=== PATIENT | female | born 1990 | race Caucasian/White ===

== ENCOUNTER → 2017-08-21 | Outpatient (CLI) | payer BC ==
[~2017-08-21] MED LIST: BIRTH CONTROL; NITR-65 PO
--- NOTE | 2017-08-21 12:21 | Diagnostic Imaging Report ---
PROCEDURE: US OB SINGLE FETUS <14 WKS. TECHNIQUE: Multiple real-time grayscale images were obtained over the gravid uterus in various projections. INDICATION: Uncertain dates COMPARISON: There are no prior studies available for comparison. FINDINGS: There is a gestational sac within the uterus containing a single live fetus. heart motion was noted and a rate of 169 bpm was recorded. The crown-rump length suggests the estimated gestational age is 8 weeks 5 days plus or minus one week. There were no obvious abnormalities identified. The amniotic fluid volume is within normal limits. At this time, it is not certain where the placenta will develop. There is no pelvic mass or free fluid collection noted. The ovaries were not visualized. IMPRESSION: 1. There is a single live intrauterine of approximately 8 weeks 5 days gestation, plus or minus one week. The EDC is 03/28/2018. 2. There were no obvious abnormalities identified. If a more sensitive evaluation of anatomy is desired, then a followup exam in 10-12 weeks would be recommended. Dictated by: Dictated on workstation # [id number]
== END ==
LOC: RAD 10:03
PROVIDERS: ATTEND Family Medicine
DX: Z34.81 Encounter for supervision of other normal pregnancy, first trimester (principal); Z3A.08 8 weeks gestation of pregnancy
CPT/HCPCS: 76801

== ENCOUNTER 2017-09-07 20:00 | Observation (INO) | payer BC ==
[~2017-09-07] VITALS: Ht 160 cm; Wt 84.1 kg
--- OUTSIDE RECORDS SUMMARY | 2017-09-07 20:06 | XMS REPORT | Continuity of Care Document ---
Author Author [facility] Organization [facility] Address Unknown Phone Unavailable Allergies Active Description Code Type Severity Reaction Onset Reported/Identified Relationship to Patient Clinical Status Yes No Known Drug Allergies [id number] Drug Allergy Unknown N/A 11/25/2013 Medications There is no data. Problems Date Dx Coded Attending Type Code Diagnosis Diagnosed By 11/25/2013 YEIMI CASTILLO MD Ot 599.0 URIN TRACT INFECTION NOS 11/25/2013 YEIMI CASTILLO MD Ot 789.09 ABDOMINAL PAIN, OTHER SPECIFIED SITE 08/22/2017 RIKA ROBERTO MD Ot Z34.81 ENCOUNTER FOR SUPRVSN OF NORMAL PREGNANC 08/22/2017 RIKA ROBERTO MD Ot Z3A.08 8 WEEKS GESTATION OF 09/03/2017 RIKA ROBERTO MD Ot Z34.81 ENCOUNTER FOR SUPRVSN OF NORMAL PREGNANC 09/03/2017 RIKA ROBERTO MD, Ot Z3A.08 8 WEEKS GESTATION OF Procedures There is no data. Results There is no data. Encounters ACCT No. Visit Date/Time Discharge Status Pt. Type Provider Facility Loc./Unit Complaint [id number] 08/21/2017 10:03:00 08/21/2017 23:59:59 CLS Outpatient RIKA ROBERTO MD [facility] RAD DATING [id number] 11/25/2013 01:45:00 11/25/2013 02:15:00 DIS Emergency YEIMI CASTILLO MD [facility] ER BACK PAIN
[2017-09-07] MEDS ORDERED: LACTATED RINGERS 1,000 ML IV ONE ×2 (20:59→22:06)
[2017-09-07 21:12] LABS: BASOPHILS % (AUTO) 0 % (0-10); EOSINOPHILS % (AUTO) 0 % (0-10); HEMATOCRIT 37 % (35-52); HEMOGLOBIN 12.8 G/DL (11.5-16.0); LYMPHOCYTES % (AUTO) 10 % (12-44); MEAN CORPUSCULAR HEMOGLOBIN 29 PG (25-34); MEAN CORPUSCULAR HGB CONC 35 G/DL (32-36); MEAN CORPUSCULAR VOLUME 83 FL (80-99); MEAN PLATELET VOLUME 9.9 FL (7.4-10.4); MONOCYTES # (AUTO) 0.2 X 10^3 (0.0-1.0); MONOCYTES % (AUTO) 2 % (0-12); NEUTROPHILS # (AUTO) 9.2 X 10^3 (1.8-7.8); NEUTROPHILS % (AUTO) 88 % (42-75); PLATELET COUNT 295 10^3/uL (130-400); RED BLOOD COUNT 4.45 10^6/uL (4.35-5.85); RED CELL DISTRIBUTION WIDTH 12.7 % (10.0-14.5); WHITE BLOOD COUNT 10.4 10^3/uL (4.3-11.0)
--- NOTE | 2017-09-07 21:23 | ED Abdominal Pain ---
General Chief Complaint: Abdominal/GI Problems Stated Complaint: 11 WEEKS , ABD PAIN Nursing Triage Note: PT C/O LEFT SIDED ABD PAIN ONSET TODAY, PT IS 11 WEEKS . PT ALSO REPORTS NAUSEA AND VOMITING Sepsis Screen: No Definite Risk Source of Information: Patient Exam Limitations: No Limitations History of Present Illness Date Seen by Provider: Sep 07, 2017 Time Seen by Provider: 21:00 Initial Comments PT STATES SHE IS 11 WEEKS --LMP 06/23/17 PT BEGAN HAVING SEVERE LLQ AND LEFT FLANK PAIN/CRAMPING AROUND 1600 TODAY AND HAS BEEN CONSTANT PAIN NOTHING WORSENS OR IMPROVES PAIN TOOK 2 TYLENOL AROUND 1800 WITHOUT RELIEF HAS HAD NAUSEA AND VOMITED X 2 TODAY. HAS NOT HAD ANY INTAKE TODAY NO DIARRHEA--HAD NORMAL BM YESTERDAY NO FEVER HAS HAD LOWER ABDOMINAL PRESSURE X 1 WEEK HAS BEEN HAVING DIFFICULTY URINATING ALL WEEK--URGENCY, FREQUENCY, SMALL AMOUNTS --SEEN BY DR. ROBERTO ON FRIDAY AND DX WITH UTI AND STARTED ON MACROBID SEEN AGAIN ON Friday09/05/17 FOR SAME SYMPTOMS, URINE WAS CLEAR AT THAT TIME. NO CHANGE IN MEDICATION HAD ROUTINE OB ULTRASOUND 3 WEEKS AGO AND WAS NOT HAVING PROBLEMS OF ANY KIND AT THAT TIME, AND HAS NOT HAD ANY DURING THIS . PT IS AB0 NO PRIOR ABDOMINAL PROBLEMS PCP AND OB: DR ROBERTO Allergies and Home Medications Allergies Coded Allergies: No Known Drug Allergies (Unverified , 11/25/13) Home Medications Nitrofurantoin/Nitrofuran Mac 100 Mg Capsule, 1 EACH PO BID, #10 FOR INFECTION Prescribed by: YEIMI CASTILLO on 11/25/13 0208 [ Control] , (Reported) Review of Systems Constitutional: no symptoms reported, No chills, No diaphoresis, No fever EENTM: No Symptoms Reported Respiratory: No Symptoms Reported Cardiovascular: No Symptoms Reported Gastrointestinal: See HPI, Abdominal Pain, Denies Constipated, Denies Diarrhea , Nausea, Poor Appetite, Poor Fluid Intake, Vomiting Genitourinary: See HPI, Frequency, Flank Pain, Urgency Musculoskeletal: see HPI, back pain Skin: no symptoms reported Psychiatric/Neurological: No Symptoms Reported Endocrine: No Symptoms Reported Hematologic/Lymphatic: No Symptoms Reported Past Rctwpnl-Fkpyia-Ugpola Hx Patient Social History Alcohol Use: Denies Use Recreational Drug Use: No Smoking Status: Never a Smoker Recent Foreign Travel: No Contact w/Someone Who Travel: No Recent Infectious Disease Expo: No Physical Abuse: No Sexual Abuse: No Surgeries History of Surgeries: Yes (WISDOM TEETH REMOVED) Respiratory History of Respiratory Disorde: No Cardiovascular History of Cardiac Disorders: No Neurological History of Neurological Disord: No Reproductive System : Yes Last Menstrual Period: Jun 23, 2017 Hx : 1 Hx Para: 0 Hx Total # of Abortions (Spona: 0 Hx Reproductive Disorders: No Sexually Transmitted Disease: No Genitourinary History of Genitourinary Disor: No Gastrointestinal History of Gastrointestinal Di: No Musculoskeletal History of Musculoskeletal Dis: No Endocrine History of Endocrine Disorders: No HEENT History of HEENT Disorders: No Cancer History of Cancer: No Psychosocial History of Psychiatric Problem: No Suicide Risk Score: 0 Integumentary History of Skin or Integumenta: No Blood Transfusions History of Blood Disorders: No Physical Exam Vital Signs VS - Last 72 Hours, by Label 09/07/17 20:57 Temp 98.4 Pulse 66 Resp 20 B/P (MAP) 111/74 (86) Capillary Refill : Less Than 3 Seconds General Appearance: WD/WN, no apparent distress HEENT: PERRL/EOMI Neck: normal inspection Respiratory: normal breath sounds, no respiratory distress, no accessory muscle use Cardiovascular: regular rate, rhythm, no murmur Gastrointestinal: normal bowel sounds, soft, no organomegaly, no pulsatile mass , No distended, No guarding, No rebound, tenderness (LLQ AND LEFT FLANK) Extremities: normal inspection, no pedal edema Back: CVA tenderness (L) Neurologic/Psychiatric: 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, no motor/sensory deficits, alert, normal mood/affect, oriented x 3 Skin: normal color, warm/dry, No rash Progress/Results/Core Measures Results/Orders Lab Results Laboratory Tests Test 09/07/17 21:05 09/07/17 22:19 Range/Units White Blood Count 10.4 4.3-11.0 10^3/uL Red Blood Count 4.45 4.35-5.85 10^6/uL Hemoglobin 12.8 11.5-16.0 G/DL Hematocrit 37 35-52 % Mean Corpuscular Volume 83 80-99 FL Mean Corpuscular Hemoglobin 29 25-34 PG Mean Corpuscular Hemoglobin Concent 35 32-36 G/DL Red Cell Distribution Width 12.7 10.0-14.5 % Platelet Count 295 130-400 10^3/uL Mean Platelet Volume 9.9 7.4-10.4 FL Neutrophils (%) (Auto) 88 H 42-75 % Lymphocytes (%) (Auto) 10 L 12-44 % Monocytes (%) (Auto) 2 0-12 % Eosinophils (%) (Auto) 0 0-10 % Basophils (%) (Auto) 0 0-10 % Neutrophils # (Auto) 9.2 H 1.8-7.8 X 10^3 Lymphocytes # (Auto) 1.0 1.0-4.0 X 10^3 Monocytes # (Auto) 0.2 0.0-1.0 X 10^3 Eosinophils # (Auto) 0.0 0.0-0.3 10^3/uL Basophils # (Auto) 0.0 0.0-0.1 10^3/uL Neutrophils % (Manual) 84 % Lymphocytes % (Manual) 11 % Monocytes % (Manual) 0 % Eosinophils % (Manual) 0 % Basophils % (Manual) 0 % Band Neutrophils 4 % Reactive Lymphocytes 1 % Blood Morphology Comment NORMAL Sodium Level 135 135-145 MMOL/L Potassium Level 4.0 3.6-5.0 MMOL/L Chloride Level 104 98-107 MMOL/L Carbon Dioxide Level 18 L 21-32 MMOL/L Anion Gap 13 5-14 MMOL/L Blood Urea Nitrogen 7 7-18 MG/DL Creatinine 0.74 0.60-1.30 MG/DL Estimat Glomerular Filtration Rate > 60 BUN/Creatinine Ratio 9 Glucose Level 121 H 70-105 MG/DL Calcium Level 9.0 8.5-10.1 MG/DL Total Bilirubin 0.3 0.1-1.0 MG/DL Aspartate Amino Transf (AST/SGOT) 31 5-34 U/L Alanine Aminotransferase (ALT/SGPT) 22 0-55 U/L Alkaline Phosphatase 69 40-136 U/L Total Protein 7.1 6.4-8.2 GM/DL Albumin 3.7 3.2-4.5 GM/DL Amylase Level 31 25-125 U/L Lipase 17 8-78 U/L Human Chorionic Gonadotropin, Quant 43166 H <5 MIU/ML Urine Color YELLOW Urine Clarity CLEAR Urine pH 6 5-9 Urine Specific [place] 1.025 H 1.016-1.022 Urine Protein NEGATIVE NEGATIVE Urine Glucose (UA) NEGATIVE NEGATIVE Urine Ketones 4+ H NEGATIVE Urine Nitrite NEGATIVE NEGATIVE Urine Bilirubin NEGATIVE NEGATIVE Urine Urobilinogen NORMAL NORMAL MG/DL Urine Leukocyte Esterase NEGATIVE NEGATIVE Urine RBC (Auto) 1+ H NEGATIVE Urine RBC 0-2 /HPF Urine WBC 0-2 /HPF Urine Squamous Epithelial Cells 0-2 /HPF Urine Crystals NONE /LPF Urine Bacteria FEW H /HPF Urine Casts NONE /LPF Urine Mucus NEGATIVE /LPF Urine Culture Indicated NO My Orders Orders - JESSICA POPE DO Saline Lock/Iv-Start (09/07/17 20:59) Amylase (09/07/17 20:59) Cbc With Automated Diff (09/07/17 20:59) Comprehensive Metabolic Panel (09/07/17 20:59) Hcg,Quantitative (09/07/17 20:59) Lipase (09/07/17 20:59) Ua Culture If Indicated (09/07/17 20:59) Abo Rh Type (09/07/17 20:59) Us Ob Single Fetus<14 [id number] (09/07/17 20:59) Saline Lock/Iv-Start (09/07/17 20:59) Lactated Ringers (Lr 1000 Ml Iv Solution (09/07/17 20:59) Manual Differential (09/07/17 21:05) Us Renal Limited [id number] (09/07/17 21:38) Morphine Injection (Morphine Injection (09/07/17 22:06) Lactated Ringers (Lr 1000 Ml Iv Solution (09/07/17 22:06) Promethazine Injection (Phenergan Injec (09/07/17 22:30) Diphenhydramine Injection (Benadryl Inje (09/07/17 22:30) Medications Given in ED Current Medications Medications Dose Ordered Sig/Андрей Route Start Time Stop Time Status Last Admin Dose Admin Lactated Ringer's 1,000 ml @ 0 mls/hr Q0M ONCE IV 09/07/17 20:59 09/07/17 21:01 DC 09/07/17 21:11 1,000 MLS/HR Lactated Ringer's 1,000 ml @ 0 mls/hr Q0M ONCE IV 09/07/17 22:06 09/07/17 22:19 DC 09/07/17 23:15 1,000 MLS/HR Vital Signs/I&O Vital Sign - Last 12Hours 09/07/17 20:57 Temp 98.4 Pulse 66 Resp 20 B/P (MAP) 111/74 (86) Intake and Output 09/08/17 00:00 Intake Total 1000 ml Balance 1000 ml Blood Pressure Mean: 86 Progress Note : Progress Note PAIN PARTIALLY EASED WITH PAIN MEDICATIONS UNEVENTFUL ER STAY Diagnostic Imaging Comments ULTRASOUNDS--OB NORMAL IUP 11 WEEKS 2 DAYS.FHR 147--PER [facility] VIA FAX @ 7777 ULTRASOUND LEFT KIDNEY--MILD LEFT HYDRONEPHROSIS--PER [facility] VIA FAX @ 5692 Reviewed: Reviewed by Me Departure Communication (Admissions) Time/Spoke to Admitting Phy: 23:[address] CRABTREE. ACCEPTS PT FOR ADMIT. SHE ADVISES ONE VIEW KUB XRAY STONE IS NOT VISIBLE ON ULTRASOUND Impression Impression: Primary Impression: SUSPECTED LEFT URETERAL STONE Additional Impressions: Hydronephrosis of left kidney 11 weeks gestation of Disposition: ADMITTED INPATIENT Condition: Stable Admissions Decision to Admit Reason: Admit from ER (General) Decision to Admit/Date: Sep 07, 2017 Time/Decision to Admit Time: 23:15 Departure-Patient Inst. Referrals: RIKA ROBERTO MD (PCP/Family) Primary Care Physician JESSICA POPE DO Sep 07, 2017 21:23
[2017-09-07 21:33] LABS: ALANINE AMINOTRANSFERASE 22 U/L (0-55); ALBUMIN 3.7 GM/DL (3.2-4.5); ALKALINE PHOSPHATASE 69 U/L (40-136); AMYLASE 31 U/L (25-125); BILIRUBIN,TOTAL 0.3 MG/DL (0.1-1.0); BUN/CREATININE RATIO 9; CARBON DIOXIDE 18 MMOL/L (21-32); CHLORIDE 104 MMOL/L (98-107); CREATININE SERUM 0.74 MG/DL (0.60-1.30); GFR ESTIMATED > 60; GLUCOSE 121 MG/DL (70-105); LIPASE 17 U/L (8-78); SODIUM 135 MMOL/L (135-145); TOTAL PROTEIN 7.1 GM/DL (6.4-8.2)
[2017-09-07 21:38] LABS: BAND NEUTROPHILS 4 %; BASOPHILS % (MANUAL) 0 %; EOSINOPHILS % (MANUAL) 0 %; LYMPHOCYTES % (MANUAL) 11 %; MONOCYTES % (MANUAL) 0 %; NEUTROPHILS % (MANUAL) 84 %; RBC MORPH NORMAL; REACTIVE LYMPHOCYTES 1 %
[2017-09-07] MEDS ORDERED: morphine INJ 10 MG/ML 1ML (SYR OR VIAL) IVP STA ×2 (22:06→23:14)
[2017-09-07] MEDS ORDERED: diphenhydrAMINE 50 MG/ML INJ (BENADRYL) IVP ONE (22:30)
[2017-09-07] MEDS ORDERED: PROMETHAZINE INJ 25 MG/ML (PHENERGAN) AMP IVP ONE (22:30)
[2017-09-07 22:56] LABS: CLARITY,URINE CLEAR; COLOR,URINE YELLOW
[2017-09-07 22:57] LABS: BACTERIA,URINE FEW /HPF; BILIRUBIN,URINE NEGATIVE (NEGATIVE); GLUCOSE, URINE (UA) NEGATIVE (NEGATIVE); KETONES,URINE 4+ (NEGATIVE); LEUKOCYTE ESTERASE ,URINE NEGATIVE (NEGATIVE); NITRITE,URINE NEGATIVE (NEGATIVE); PH,URINE 6 (5-9); PROTEIN,URINE NEGATIVE (NEGATIVE); RBC,URINE 0-2 /HPF; UROBILINOGEN,URINE NORMAL (NORMAL); WBC,URINE 0-2 /HPF
[2017-09-07 22:58] LABS: SQUAMOUS EPITHELIAL CELL,UR 0-2 /HPF
--- OUTSIDE RECORDS SUMMARY | 2017-09-07 23:36 | XMS REPORT | Continuity of Care Document ---
Author Author [facility] Organization [facility] Address Unknown Phone Unavailable Allergies Active Description Code Type Severity Reaction Onset Reported/Identified Relationship to Patient Clinical Status Yes No Known Drug Allergies [id number] Drug Allergy Unknown N/A 11/25/2013 Medications There is no data. Problems Date Dx Coded Attending Type Code Diagnosis Diagnosed By 11/25/2013 YEIMI CASTILLO MD Ot 599.0 URIN TRACT INFECTION NOS 11/25/2013 YEIMI CASTILLO MD Ot 789.09 ABDOMINAL PAIN, OTHER SPECIFIED SITE 08/22/2017 RIKA ROBERTO MD, Ot Z34.81 ENCOUNTER FOR SUPRVSN OF NORMAL PREGNANC 08/22/2017 RIKA ROBERTO MD, Ot Z3A.08 8 WEEKS GESTATION OF 09/03/2017 RIKA ROBERTO MD, Ot Z34.81 ENCOUNTER FOR SUPRVSN OF NORMAL PREGNANC 09/03/2017 RIKA ROBERTO MD, Ot Z3A.08 8 WEEKS GESTATION OF Procedures There is no data. Results Test Result Range Complete blood count (CBC) with automated white blood cell (WBC) differential - 09/07/17 21:05 Blood leukocytes automated count (number/volume) 10.4 10*3/uL 4.3-11.0 Blood erythrocytes automated count (number/volume) 4.45 10*6/uL 4.35-5.85 Venous blood hemoglobin measurement (mass/volume) 12.8 g/dL 11.5-16.0 Blood hematocrit (volume fraction) 37 % 35-52 Automated erythrocyte mean corpuscular volume 83 [foz_us] 80-99 Automated erythrocyte mean corpuscular hemoglobin (mass per erythrocyte) 29 pg 25-34 Automated erythrocyte mean corpuscular hemoglobin concentration measurement ( mass/volume) 35 g/dL 32-36 Automated erythrocyte distribution width ratio 12.7 % 10.0-14.5 Automated blood platelet count (count/volume) 295 10*3/uL 130-400 Automated blood platelet mean volume measurement 9.9 [foz_us] 7.4-10.4 Automated blood neutrophils/100 leukocytes 88 % 42-75 Automated blood lymphocytes/100 leukocytes 10 % 12-44 Blood monocytes/100 leukocytes 2 % 0-12 Automated blood eosinophils/100 leukocytes 0 % 0-10 Automated blood basophils/100 leukocytes 0 % 0-10 Blood neutrophils automated count (number/volume) 9.2 10*3 1.8-7.8 Blood lymphocytes automated count (number/volume) 1.0 10*3 1.0-4.0 Blood monocytes automated count (number/volume) 0.2 10*3 0.0-1.0 Automated eosinophil count 0.0 10*3/uL 0.0-0.3 Automated blood basophil count (count/volume) 0.0 10*3/uL 0.0-0.1 Comprehensive metabolic panel - 09/07/17 21:05 Serum or plasma sodium measurement (moles/volume) 135 mmol/L 135-145 Serum or plasma potassium measurement (moles/volume) 4.0 mmol/L 3.6-5.0 Serum or plasma chloride measurement (moles/volume) 104 mmol/L 98-107 Carbon dioxide 18 mmol/L 21-32 Serum or plasma anion gap determination (moles/volume) 13 mmol/L 5-14 Serum or plasma urea nitrogen measurement (mass/volume) 7 mg/dL 7-18 Serum or plasma creatinine measurement (mass/volume) 0.74 mg/dL 0.60-1.30 Serum or plasma urea nitrogen/creatinine mass ratio 9 NRG Serum or plasma creatinine measurement with calculation of estimated glomerular filtration rate > NRG Serum or plasma glucose measurement (mass/volume) 121 mg/dL 70-105 Serum or plasma calcium measurement (mass/volume) 9.0 mg/dL 8.5-10.1 Serum or plasma total bilirubin measurement (mass/volume) 0.3 mg/dL 0.1-1.0 Serum or plasma alkaline phosphatase measurement (enzymatic activity/volume) 69 U/L 40-136 Serum or plasma aspartate aminotransferase measurement (enzymatic activity/ volume) 31 U/L 5-34 Serum or plasma alanine aminotransferase measurement (enzymatic activity/volume ) 22 U/L 0-55 Serum or plasma protein measurement (mass/volume) 7.1 g/dL 6.4-8.2 Serum or plasma albumin measurement (mass/volume) 3.7 g/dL 3.2-4.5 Serum or plasma amylase measurement (enzymatic activity/volume) - 09/07/17 21: 05 Serum or plasma amylase measurement (enzymatic activity/volume) 31 U /L 25-125 Lipase - 09/07/17 21:05 Lipase 17 U/L 8-78 Blood manual differential performed detection - 09/07/17 21:05 Blood monocytes/100 leukocytes 0 % NRG Manual blood segmented neutrophils/100 leukocytes 84 % NRG Blood band neutrophils/100 leukocytes 4 % NRG Manual blood lymphocytes/100 leukocytes 11 % NRG Manual eosinophils/100 leukocytes in nose 0 % NRG Manual blood basophils/100 leukocytes 0 % NRG Blood lymphocytes variant/100 leukocytes 1 % NRG Blood erythrocyte morphology finding identification NORMAL NRG Serum or plasma choriogonadotropin measurement (units/volume) - 09/07/17 21:05 Serum or plasma choriogonadotropin measurement (units/volume) 20732 m[iU]/mL <5 ABO+Rh group - 09/07/17 21:10 ABO+Rh group OP NRG Complete urinalysis with reflex to culture - 09/07/17 22:19 Urine color determination YELLOW NRG Urine clarity determination CLEAR NRG Urine pH measurement by test strip 6 5-9 Specific gravity of urine by test strip 1.025 1.016- 1.022 Urine protein assay by test strip, semi-quantitative NEGATIVE NEGATIVE Urine glucose detection by automated test strip NEGATIVE NEGATIVE Erythrocytes detection in urine sediment by light microscopy 1+ NEGATIVE Urine ketones detection by automated test strip 4+ NEGATIVE Urine nitrite detection by test strip NEGATIVE NEGATIVE Urine total bilirubin detection by test strip NEGATIVE NEGATIVE Urine urobilinogen measurement by automated test strip (mass/volume) NORMAL NORMAL Urine leukocyte esterase detection by dipstick NEGATIVE NEGATIVE Automated urine sediment erythrocyte count by microscopy (number/high power field) [HPF] NRG Automated urine sediment leukocyte count by microscopy (number/high power field ) [HPF] NRG Bacteria detection in urine sediment by light microscopy FEW NRG Squamous epithelial cells detection in urine sediment by light microscopy 0-2 NRG Crystals detection in urine sediment by light microscopy NONE NRG Casts detection in urine sediment by light microscopy NONE NRG Mucus detection in urine sediment by light microscopy NEGATIVE NRG Complete urinalysis with reflex to culture NO NRG Encounters ACCT No. Visit Date/Time Discharge Status Pt. Type Provider Facility Loc./Unit Complaint [id number] 08/21/2017 10:03:00 08/21/2017 23:59:59 CLS Outpatient FELISA HIGGINS, RIKA Wooten [facility] RAD DATING [id number] 11/25/2013 01:45:00 11/25/2013 02:15:00 DIS Emergency ANNA HIGGINS, YEIMI Petersen [facility] ER BACK PAIN [id number] 09/07/2017 21:12:00 Document Registration
[2017-09-08] VITALS: BP 121/63
[2017-09-08] MEDS ORDERED: D5 1/2 NS W/KCL 20 MEQ/L 1,000 ML IV ONE (00:11)
[2017-09-08] MEDS ORDERED: PROMETHAZINE INJ 25 MG/ML (PHENERGAN) AMP IV PRN (00:30)
[2017-09-08] MEDS ORDERED: diphenhydrAMINE 50 MG/ML INJ (BENADRYL) IV PRN (00:30)
[2017-09-08] MEDS ORDERED: morphine INJ 4 MG/ML 1 ML (VIAL/SYRINGE) IV PRN (00:30)
[2017-09-08] MEDS: D5 1/2 NS W/KCL 20 MEQ/L 1,000 ML IV SCH ×3 (00:45→13:53)
[2017-09-08 03:50] VITALS: BP 92/64
[2017-09-08 06:11] LABS: BASOPHILS % (AUTO) 0 % (0-10); EOSINOPHILS % (AUTO) 0 % (0-10); HEMATOCRIT 35 % (35-52); LYMPHOCYTES # (AUTO) 2.2 X 10^3 (1.0-4.0); LYMPHOCYTES % (AUTO) 25 % (12-44); MEAN CORPUSCULAR HEMOGLOBIN 29 PG (25-34); MEAN CORPUSCULAR HGB CONC 35 G/DL (32-36); MEAN CORPUSCULAR VOLUME 83 FL (80-99); MEAN PLATELET VOLUME 10.1 FL (7.4-10.4); MONOCYTES # (AUTO) 0.6 X 10^3 (0.0-1.0); MONOCYTES % (AUTO) 7 % (0-12); NEUTROPHILS % (AUTO) 68 % (42-75); PLATELET COUNT 263 10^3/uL (130-400); RED BLOOD COUNT 4.17 10^6/uL (4.35-5.85); RED CELL DISTRIBUTION WIDTH 12.7 % (10.0-14.5); WHITE BLOOD COUNT 8.8 10^3/uL (4.3-11.0)
[2017-09-08 06:30] LABS: BUN/CREATININE RATIO 8; CALCIUM 8.3 MG/DL (8.5-10.1); CARBON DIOXIDE 19 MMOL/L (21-32); CHLORIDE 109 MMOL/L (98-107); CREATININE SERUM 0.61 MG/DL (0.60-1.30); GFR ESTIMATED > 60; GLUCOSE 127 MG/DL (70-105); POTASSIUM 3.5 MMOL/L (3.6-5.0); SODIUM 139 MMOL/L (135-145)
[2017-09-08] MEDS ORDERED: CATHETER FLUSH 10 ML SYR IV PRN (07:00)
[2017-09-08] MEDS ORDERED: INFLUENZA TRIvalent 2017-2018 0.5 ML/45 MCG SYR IM ONE (07:00)
--- NOTE | 2017-09-08 07:44 | Diagnostic Imaging Report ---
INDICATION: Abdominal pain. Comparison: None available. Findings: There are scattered pelvic phleboliths. No evidence of renal calculi. Nonobstructive bowel gas pattern. Normal regional skeleton. IMPRESSION: Calcifications in the pelvis are most compatible with phleboliths. No evidence of urinary tract calculi. Dictated by: Dictated on workstation # [id number]
--- NOTE | 2017-09-08 07:49 | Diagnostic Imaging Report ---
PROCEDURE: US OB SINGLE FETUS <14 WKS. TECHNIQUE: Multiple real-time grayscale images were obtained over the gravid uterus in various projections. INDICATION: Abdominal pain. Comparison: None available. FINDINGS: An intrauterine is in appropriate position. The gestational sac has a normal configuration. Based on crown-rump length, estimated gestational age is 11 weeks and 2 days. heart rate is identified at 147 beats per minute. No evidence of subchorionic hemorrhage. IMPRESSION: Single live early intrauterine with gestational age of approximately 11 weeks and 2 days. Dictated by: Dictated on workstation # [id number]
--- NOTE | 2017-09-08 07:50 | Diagnostic Imaging Report ---
INDICATION: Left flank pain. COMPARISON: Pelvic ultrasound performed concurrently. FINDINGS: The left kidney measures 11 cm in length. There is mild distention of the renal sinus fat and there is also mild dilation of the renal pelvis. No shadowing echogenic calculi. No renal mass. The right kidney is not imaged on this examination. IMPRESSION: Suggestion of mild left hydronephrosis. Irregular prominent extrarenal pelvis which could be of physiologic variant for this patient. Dictated by: Dictated on workstation # [id number]
--- NOTE | 2017-09-08 07:50 | History & Physicial ---
History of Present Illness History of Present Illness Reason for visit/HPI 26-year-old 1 female currently 11 weeks gestation who presents to [facility] emergency department during the evening of September 07, 2017 with left- sided flank pain. Patient had been seen in the office twice the week prior and at that time felt to have a urinary tract infection. She was seen Friday and noted to have 1+ leukocytes as well as trace amount of blood. She was started on Macrobid 100 mg twice daily for 7 days. Also her urine was cultured but 2 days later it came back without growth. She presented again on September 05 with unable to urinate very well. She was not noted to have any flank pain and her urine analysis by dipstick was completely clear. Date of Admission Sep 07, 2017 at 23:15 Date Seen by Provider: Sep 08, 2017 Time Seen by Provider: 07:40 I consulted on this patient on 09/08/17 07:46 Attending Physician Rika Roberto MD Admitting Physician Rika Roberto MD Consult Allergies and Home Medications Allergies Coded Allergies: No Known Drug Allergies (Unverified , 11/25/13) Home Medications Nitrofurantoin/Nitrofuran Mac 100 Mg Capsule, 1 EACH PO BID, #10 FOR INFECTION Prescribed by: YEIMI CASTILLO on 11/25/13 0208 [ Control] , (Reported) Past Ndrupoe-Ybuxce-Vvthzr Hx Patient Social History Marrital Status: Alcohol Use: Denies Use Recreational Drug Use: No Smoking Status: Never a Smoker Physical Abuse Screen: No Sexual Abuse: No Recent Foreign Travel: No Contact w/other who traveled: No Recent Infectious Disease Expo: No Surgeries Yes (WISDOM TEETH REMOVED) Respiratory No Currently Using CPAP: No Cardiovascular No Neurological Yes (febrile seizure as toddler ) Reproductive System : Yes Last Menstrual Period: Jun 23, 2017 Hx : 1 Hx Para: 0 Hx Total # of Abortions (Spona: 0 Hx Reproductive Disorders: No Sexually Transmitted Disease: No Genitourinary No Kidney Infection Gastrointestinal No Musculoskeletal No Endocrine History of Endocrine Disorders: No HEENT History of HEENT Disorders: No Cancer No Psychosocial History of Psychiatric Problem: No Integumentary History of Skin or Integumenta: No Blood Transfusions History of Blood Disorders: No Constitutional: see HPI Physical Exam Vital Signs Vital Sign - Last 12Hours 09/07/17 09/07/17 09/08/17 20:57 23:40 00:00 Temp 98.4 Pulse 66 Resp 20 B/P (MAP) 111/74 (86) Pulse Ox 99 O2 Delivery Room Air Capillary Refill : Less Than 3 Seconds General Appearance: No Apparent Distress (Currently on the floor) Eyes: Bilateral Eye Normal Inspection HEENT: Pharynx Normal Neck: Supple Respiratory: Lungs Clear Cardiovascular: Regular Rate, Rhythm Gastrointestinal: Soft Rectal: Deferred Back: No CVA Tenderness (Currently on the left side) Skin: Normal Color Comments Abdominal ultrasound pending report KUB x-ray single plate report officially pending. Suspicion for left sided stone potentially in the distal ureter. Assessment/Plan Assessment and Plan 1. Left-sided flank pain--suspicious for urolithiasis -Pain control initiated through ED -Consultation with urology -Continue with IV fluids and encourage by mouth intake 2. Intrauterine at 11 weeks gestation Problems: Admission Diagnosis 1. Left-sided flank pain--suspicious for urolithiasis 2. Intrauterine at 11 weeks gestation Clinical Quality Measures DVT/VTE Risk/Contraindication: Risk Factor Score Per Nursin RFS Level Per Nursing on Admit: 1=Low/No VTE PPX RIKA ROBERTO MD Sep 08, 2017 07:50
--- NOTE | 2017-09-08 08:05 | CONSULTATION REPORT ---
DATE OF SERVICE: 09/08/2017 ATTENDING PHYSICIAN: Omid Jacobo MD/Misa Clay DO SUMMARY: After reviewing the patient's record, examining her and interviewing her, this is a 26-year-old white lady 11 weeks , presented to the Emergency Room with left flank pain, frequency and urgency with nausea and vomiting. A renal ultrasound revealed mild left hydronephrosis and a KUB revealed a small suspicious calcification in the distal left ureter very close to the UV junction about 2 mm in size. The patient has had no pain since midnight and required no analgesics since midnight. She feels fine, asymptomatic. She has no CVA tenderness. Abdomen is soft. ASSESSMENT: Left distal ureteral stone with mild hydronephrosis and pain possibly passed. RECOMMENDATION: Continue hydration, coverage with antibiotic and manage accordingly, chances of passing the stone spontaneously is pretty high and hopefully with heparin a high risk patient, 11 weeks . Thank you for letting me participate in the care of this patient. We will follow with you. Job ID: [id number] DocumentID: [id number] Dictated Date: 09/08/2017 07:40:06 Reporting Process Consultant Date: 09/08/2017 08:04:17 Dictated By: SINDHU LANDEROS MD MTDD
[2017-09-08] MEDS ORDERED: NITR100C10 PO (08:24)
[2017-09-08] MEDS ORDERED: PREN-102 PO (08:25)
[2017-09-08 08:33] VITALS: BP 99/56
[2017-09-08 12:00] VITALS: BP 105/65
== END 2017-09-08 14:44 | disposition home or self-care (01) ==
LOC: EDUNIT# 20:00 → ER 20:02 → 4TH 23:15
PROVIDERS: ADMIT Family Medicine; ATTEND Family Medicine
DX: O99.89 Other specified diseases and conditions complicating pregnancy, childbirth and the puerperium (principal); N20.1 Calculus of ureter; N13.30 Unspecified hydronephrosis; Z3A.11 11 weeks gestation of pregnancy
CPT/HCPCS: 36415; 74018; 76775; 76801; 80048; 80053; 81000; 82150; 83690; 84702; 85007; 85025; 85027; 86900; 86901

== ENCOUNTER → 2017-10-28 | Outpatient (CLI) | payer BC ==
[~2017-10-28] MED LIST changes: +NITR100C10 PO; +PREN-102 PO
--- NOTE | 2017-10-28 12:42 | Diagnostic Imaging Report ---
INDICATION: survey. TECHNIQUE: Multiple real-time grayscale images were obtained over the gravid uterus. COMPARISON: 08/21/2017 and 09/07/2017. FINDINGS: The previous OB ultrasound exam performed on 09/07/2017 noted a single live fetus of approximately 11 weeks 2 days gestation +/-1 week. On this exam, the fetus is again identified. The fetus is cephalic in presentation. heart motion was noted and a rate of 139 BPM was recorded. There were no abnormalities identified but the four-chamber heart view and the intracranial contents were not well visualized. I would recommend that a short-term (4-6 weeks) followup exam be performed for further evaluation of the heart and the intracranial contents. The growth parameters are fairly uniform and have progressed as expected since the prior exam. The amniotic fluid volume is within normal limits. The placenta is anterior and there is no previa. IMPRESSION: 1. There is a single live fetus of approximately 18 weeks 3 days gestation +/-1 week. The EDC remains March 28, 2018. 2. There were no abnormalities identified, although the four-chamber heart view and the intracranial contents were not well visualized. Recommendations as above. 3. The growth parameters have progressed as expected since the prior study. Biometrical measurements are as follows: Biparietal 4.1 cm, age 18 weeks 4 days. Head circumference 15.0 cm, age 18 weeks 1 days. Abdominal circumference 12.4 cm, age 18 weeks 1 days. Femur length 3.0 cm, age 19 weeks 1 days. Sonographic estimate age: 18 weeks 4 days. Sonographic estimated date of delivery: 03/27/18. Estimated Weight: 241 gm (+/- 36 gm). LMP percentile: 50%. heart rate: 139 beats per minute. number: 1 of 1. Dictated by: Dictated on workstation # [id number]
== END ==
LOC: RAD 09:35
PROVIDERS: ATTEND Family Medicine
DX: Z36.89 Encounter for other specified antenatal screening (principal); Z3A.18 18 weeks gestation of pregnancy
CPT/HCPCS: 76805

== ENCOUNTER → 2020-02-25 | Outpatient (CLI) | payer BC, OTHER ==
[~2020-02-25] MED LIST changes: +ACHD5005 PO; +IBUP-844 PO
--- NOTE | 2020-02-25 13:21 | Diagnostic Imaging Report ---
PROCEDURE: US OB SINGLE FETUS <14 WKS. TECHNIQUE: Multiple real-time grayscale images were obtained over the gravid uterus in various projections. INDICATION: Pelvic pain. FINDINGS: Uterus measures 7.9 x 4.8 x 5.7 cm. There is an intrauterine gestational sac approximately 5 weeks 4 days gestational age. A yolk sac is present. No definite pole is seen. No tello-gestational sac hemorrhage is detected. Adnexa are unremarkable. No adnexal mass or free fluid is detected. IMPRESSION: 5 week 4 day intrauterine gestational sac. No pole is seen at this time which can be due to very early gestation. Follow-up ultrasound and/or correlation with serial beta hCG levels could be performed to evaluate viability. Dictated by: Dictated on workstation # [id number]
== END ==
LOC: RAD 10:54
PROVIDERS: ATTEND Family Medicine
DX: O26.891 Other specified pregnancy related conditions, first trimester (principal); R10.2 Pelvic and perineal pain; Z3A.01 Less than 8 weeks gestation of pregnancy
CPT/HCPCS: 76801

== ENCOUNTER → 2020-03-14 | Outpatient (CLI) | payer BC, OTHER ==
--- NOTE | 2020-03-14 12:52 | Diagnostic Imaging Report ---
PROCEDURE: US OB SINGLE FETUS <14 WKS. TECHNIQUE: Multiple real-time grayscale images were obtained over the gravid uterus in various projections. INDICATION: dates. FINDINGS: There is single live intrauterine fetus. Beason-rump length of 13.6 cm consistent with 7 week 5 day gestation. heart rate of 163 bpm. No evidence of subchorionic hemorrhage. Amniotic sac appears normal with gestational sac measuring 3.8 cm. Maternal adnexa appears normal. IMPRESSION: Single live intrauterine fetus with estimated sonographic age of 8 weeks 1 day. This correlates well with the previous ultrasound. Dictated by: Dictated on workstation # [id number]
== END ==
LOC: RAD 09:36
PROVIDERS: ATTEND Family Medicine
DX: Z34.91 Encounter for supervision of normal pregnancy, unspecified, first trimester (principal); Z3A.08 8 weeks gestation of pregnancy
CPT/HCPCS: 76801

== ENCOUNTER → 2020-05-29 | Outpatient (CLI) | payer BC, OTHER ==
--- NOTE | 2020-05-29 14:08 | Diagnostic Imaging Report ---
INDICATION: survey. TECHNIQUE: Multiple real-time grayscale images were obtained over the gravid uterus. COMPARISON: 03/14/2020. FINDINGS: The previous OB ultrasound exam of 03/14/2020 noted a single live fetus approximately 8 weeks 1 day gestation. On this exam, the fetus is again visualized. The fetus is in variable presentation. heart motion was noted and a rate of 143 BPM was recorded. However, the four-chamber heart views were less than optimal. A short-term (4-6 week) follow-up exam would be recommended for further evaluation of the heart. There is no other abnormality identified. The amniotic fluid volume is within normal limits. The placenta is posterior and there is no previa. The growth parameters are fairly uniform and have progressed as expected since the prior exam. The estimated weight is in the 52nd percentile. Biometrical measurements are as follows: Biparietal 4.28 cm, age 19 weeks 0 days. Head circumference 15.96 cm, age 18 weeks 6 days. Abdominal circumference 13.86 cm, age 19 weeks 2 days. Femur length 2.93 cm, age 19 weeks 1 days. Sonographic estimate age: 19 weeks 1 days. Sonographic estimated date of delivery: 10/22/2020. Estimated Weight: 275 gm (+/- 40 gm). LMP percentile: 52%. heart rate: 143 beats per minute. number: 1 of 1. IMPRESSION: 1. There is a single live fetus of approximately 19 weeks 3 days gestation +/- 1 week. The EDC remains October 20, 2020. 2. There were no abnormalities identified. However, the views of the four-chamber heart were less than optimal. Recommendations as above. 3. The growth parameters have progressed as expected since the prior exam. Dictated by: Dictated on workstation # [id number]
== END ==
LOC: RAD 11:00
PROVIDERS: ATTEND Family Medicine
DX: Z34.92 Encounter for supervision of normal pregnancy, unspecified, second trimester (principal); Z3A.19 19 weeks gestation of pregnancy
CPT/HCPCS: 76805

== ENCOUNTER → 2020-07-14 | Outpatient (CLI) | payer BC ==
--- NOTE | 2020-07-14 14:45 | Diagnostic Imaging Report ---
INDICATION: Incomplete anatomical assessment. TECHNIQUE: Multiple real-time grayscale images were obtained over the gravid uterus. COMPARISON: 05/29/2020, 03/14/2020 FINDINGS: Single viable intrauterine is currently in cephalic presentation. Placenta is posterior and without evidence of previa. There appears to be normal amounts of amniotic fluid. cardiac activity 149 beats per minute. The four-chamber heart is visualized on this current study and appears unremarkable. Full anatomical assessment and/or biometrical measurements not performed on this study. IMPRESSION: 1. Limited obstetrical sonogram demonstrates visualization of a four-chamber heart, unremarkable. Dictated by: Dictated on workstation # [id number]
== END ==
LOC: RAD 12:43
PROVIDERS: ATTEND Family Medicine
DX: Z34.90 Encounter for supervision of normal pregnancy, unspecified, unspecified trimester (principal); Z3A.00 Weeks of gestation of pregnancy not specified
CPT/HCPCS: 76816

== ENCOUNTER → 2023-01-09 | Outpatient (CLI) | payer BC ==
[~2023-01-09] MED LIST changes: +DOCU-239 PO; +OXC5T PO
--- NOTE | 2023-01-09 11:13 | Diagnostic Imaging Report ---
INDICATION: Gestational age determination OB ultrasound Transabdominal and endovaginal scanning was performed. Uterus is normal in size, shape and position. There is an intrauterine gestational sac. Gestational sac is oval. There is a pole present with crown-rump length of 16.7 mm which corresponds to gestational age of 8 weeks 1 day. heart rate was 161 beats per minute. Yolk sac was seen. Placenta location is indeterminate. Adnexa appear normal. IMPRESSION: Single living intrauterine , estimated gestational age of 8 weeks 1 day with an estimated date of confinement 08/20/2023. Dictated by: Dictated on workstation # [id number]
== END ==
LOC: RAD 09:38
PROVIDERS: ATTEND Family Medicine
DX: Z34.91 Encounter for supervision of normal pregnancy, unspecified, first trimester (principal); Z3A.08 8 weeks gestation of pregnancy
CPT/HCPCS: 76801; 76817

== ENCOUNTER → 2023-04-02 | Outpatient (CLI) | payer BC ==
--- NOTE | 2023-04-02 17:57 | Diagnostic Imaging Report ---
INDICATION: Anatomic survey, , 20 weeks 0 days. TECHNIQUE: Multiple real-time grayscale images were obtained over the gravid uterus. COMPARISON: None. FINDINGS: The cervix measures 4.1 cm. No funneling is seen. The placenta is anterior. Initially, the placenta appeared low lying, however this resolved later in the exam. Presentation is variable. The stomach is seen. A four-chamber heart is seen. The cerebellum and lateral ventricle is seen. The cisterna magna is seen. The kidneys demonstrate prominent renal pelves, measuring 4 mm bilaterally. The bladder is seen. A three-vessel cord is demonstrated with two umbilical arteries. The cord insertion is seen. The upper and lower spine is seen. The profile is seen. The right ventricular outflow tract and the left ventricular outflow tract are seen. There are bilateral upper and lower extremities. The nose and lips are seen. The amniotic fluid index measures 14.7 cm. Biometrical measurements are as follows: Biparietal 4.50 cm, age 19 weeks 5 days. Head circumference 16.98 cm, age 19 weeks 5 days. Abdominal circumference 14.43 cm, age 19 weeks 6 days. Femur length 3.10 cm, age 19 weeks 5 days. Sonographic estimate age: 19 weeks 6 days. Sonographic estimated date of delivery: 08/21/2023. Estimated Weight: 307 gm (+/- 45 gm). LMP percentile: 28%. heart rate: 150 beats per minute. number: 1 of 1. IMPRESSION: 1. Single live intrauterine gestation measuring at 19 weeks and 6 days which is within range of the clinical dates. 2. Bilateral pelviectasis. Recommend continued follow-up. Dictated by: Dictated on workstation # [id number]
== END ==
LOC: RAD 09:52
PROVIDERS: ATTEND Family Medicine
DX: Z36.9 Encounter for antenatal screening, unspecified (principal); O26.832 Pregnancy related renal disease, second trimester; Z3A.19 19 weeks gestation of pregnancy
CPT/HCPCS: 76805

== ENCOUNTER → 2023-06-11 | Outpatient (CLI) | payer BC ==
--- NOTE | 2023-06-11 15:47 | Diagnostic Imaging Report ---
INDICATION: Pelvic pressure. Patient is 28 weeks . The study is performed to evaluate cervical length and kidneys. COMPARISON: Correlation is made with prior ultrasound from 04/02/2023. FINDINGS: There is a single live fetus in a cephalic presentation. heart rate was recorded at 150 BPM. Placenta is anterior. Amniotic fluid index is 9.9 cm. Cervical length is 4.5 cm. renal pelviectasis persists, with renal pelves measuring 6-7 mm. Bladder is unremarkable. IMPRESSION: Continued renal pelviectasis. No other significant abnormality is seen. Dictated by: Dictated on workstation # [id number]
== END ==
LOC: RAD 12:48
PROVIDERS: ATTEND Family Medicine
DX: O99.891 Other specified diseases and conditions complicating pregnancy (principal); N28.89 Other specified disorders of kidney and ureter; Z3A.28 28 weeks gestation of pregnancy
CPT/HCPCS: 76815